=== PATIENT | female | born 1995 | race Asian ===

== ENCOUNTER 2020-09-11 17:30 | Emergency (ER) | payer OTHER, SELFPAY ==
[~2020-09-11] VITALS: Ht 149.9 cm; Wt 48.2 kg
[2020-09-11 19:56] LABS: BASO % 0.3 % (0.0-1.0); EOS # 0.3 10^3/uL (0.0-0.5); EOS % 3.4 % (0.0-3.0); HEMOGLOBIN 14.2 g/dl (12.0-15.5); LYMPH # 2.6 10^3/uL (1.5-5.0); LYMPH % 35.5 % (24.0-44.0); MEAN CORPUSCULAR HEMOGLOBIN 31.1 pg (27.0-33.0); MEAN CORPUSCULAR VOLUME 94.3 fl (80.0-96.0); MONO # 0.5 10^3/uL (0.0-0.8); MONO % 7.2 % (0.0-5.0); NEUTROPHILS # 3.9 10^3/uL (1.5-8.5); NEUTROPHILS % 53.2 % (36.0-66.0); PLATELET COUNT, AUTOMATED 264 10^3/uL (150-450); RED BLOOD COUNT 4.56 10^6/uL (4.00-5.40); WHITE BLOOD COUNT 7.4 10^3/uL (4.0-10.0)
[2020-09-11 21:43] VITALS: BP 142/84
[2020-09-11 23:07] LABS: CHLAMYDIA DNA AMPLIFICATION NEGATIVE (NEGATIVE); GC DNA AMPLIFICATION NEGATIVE (NEGATIVE)
== END 2020-09-11 21:45 | disposition home or self-care (01) ==
LOC: M ED 17:30
DX: N93.9 Abnormal uterine and vaginal bleeding, unspecified (principal); Z79.3 Long term (current) use of hormonal contraceptives